=== PATIENT | male | born 1970 | race African-American/Black ===

== ENCOUNTER 2019-04-11 09:48 | Day surgery (SDC) | payer BC ==
[2019-04-10 09:12] VITALS: BMI 42.1
--- NOTE | 2019-04-10 22:17 | HP ---
HISTORY OF PRESENT ILLNESS: This is a 48-year-old male, abdominal pain and diarrhea. The patient has not seen in the last probably in a year and a half. The patient has seen me in the past with abdominal cramping and diarrhea. He had a negative colonoscopy and EGD in 2017. The EGD showed multiple gastric polyps. The patient had abdominal cramping and diarrhea off and on. ALLERGIES: NONE. MEDICAL ILLNESSES: 1. Hypothyroidism. 2. Diabetes mellitus. 3. Migraine. SOCIAL HISTORY: The patient does not smoke. PHYSICAL EXAMINATION: VITAL SIGNS: Pulse is 70 and blood pressure 130/80. HEENT: Conjunctivae clear. CARDIOVASCULAR SYSTEM: First and second heart sounds heard. LUNGS: Clear to auscultation. ABDOMEN: Soft. No organomegaly. No tenderness. No masses. Bowel sounds normal. ADMITTING DIAGNOSIS: Abdominal cramping and diarrhea. PLAN: Colonoscopy. Job ID: [id number]
[2019-04-11] MEDS ORDERED: PROPOFOL 200 MG/20 ML VIAL ONE (12:34)
--- NOTE | 2019-04-11 12:49 | OP ---
DATE OF PROCEDURE: 04/11/2019 OPERATIVE PROCEDURE: Colonoscopy. PREOPERATIVE DIAGNOSIS: A 48-year-old male, undergoing colonoscopy for colon cancer screening. POSTOPERATIVE DIAGNOSES: 1. Diffuse colonic diverticular disease from sigmoid all the way to cecum. 2. Hemorrhoids. 3. Return of stool intermittently in the colon. DESCRIPTION OF PROCEDURE: The patient was placed on his left lateral position and was given sedation by Anesthesia Department. The rectal exam was done before the scope was advanced into the rectum. No lesions felt on rectal exam. A Pentax videocolonoscope was introduced into the rectum and advanced all the way into the cecum. The prep was good on the left side, but once the splenic flexure was reached, he had the fecal coating of the mucosa throughout. He also had some areas with some solid stool. Water was irrigated externally and washed out. The patient had severe sigmoid diverticula. He also has mild diverticula scattered throughout the colon. The appendiceal orifice, ileocecal wall, no pathology seen. Withdrawal of scope from the cecum, ascending colon, hepatic flexure, transverse colon, splenic flexure, descending colon, and sigmoid colon showed scattered diverticula. The rectum showed hemorrhoids. DISCHARGE PLAN: A 48-year-old male came for colonoscopy for colon cancer screening. The patient was found to have diffuse colonic diverticula. The diverticula were seen over the sigmoid colon area. The patient did well postprocedure and is being discharged home. DISCHARGE RECOMMENDATION: 1. The patient is advised to call me if he develops any abdominal pain, hematochezia, or fever. 2. High-fiber diet. 3. Metamucil once a day. 4. To come back to clinic in 2 weeks. Job ID: [id number]
== END 2019-04-11 12:24 | disposition home or self-care (01) ==
LOC: SDC 09:48
PROVIDERS: ATTEND Internal Medicine Gastroenterology
PROC: 0DJD8ZZ Inspection of Lower Intestinal Tract, Via Natural or Artificial Opening Endoscopic (ICD-10-PCS; principal; 2019-04-11)
DX: Z12.11 Encounter for screening for malignant neoplasm of colon (principal); K57.30 Diverticulosis of large intestine without perforation or abscess without bleeding; K64.9 Unspecified hemorrhoids; E03.9 Hypothyroidism, unspecified; E11.9 Type 2 diabetes mellitus without complications; G43.909 Migraine, unspecified, not intractable, without status migrainosus; Z79.4 Long term (current) use of insulin; Z79.82 Long term (current) use of aspirin; Z79.899 Other long term (current) drug therapy; Z91.018 Allergy to other foods; Z91.041 Radiographic dye allergy status; Z98.890 Other specified postprocedural states
CPT/HCPCS: 36416; J2704

== ENCOUNTER 2019-11-25 19:24 | Emergency (ER) | payer BC ==
[2019-11-25 19:53] LABS: #Basophils 0.1 thou/uL (0.0-0.2); #Lymphocytes 1.2 thou/uL (1.20-3.40); #Monocytes 0.4 thou/uL (0.11-0.59); #Neutrophils 3.2 thou/uL (1.40-6.50); %Basophils 1.1 % (0.0-1.0); %Eosinophils 0.7 % (0.0-10.0); %Lymphocytes 24.2 % (21.0-51.0); %Monocytes 8.3 % (0.0-10.0); %Neutrophils 65.7 % (42.0-75.0); Hemoglobin 14.8 g/dL (14.0-18.0); Mean Corpuscular HGB CONC 35.3 g/dL (32.0-36.0); Mean Corpuscular Volume 87.6 fL (78.0-98.0); Mean Platelet Volume 8.1 fL (7.4-10.4); Platelet Count 201 thou/uL (130-400); Red Blood Cell (RBC) Count 4.78 mill/uL (4.70-6.10); White Blood Cell (WBC) Count 4.9 thou/uL (4.8-10.8)
[2019-11-25 20:15] LABS: ALT (SGPT) 47 U/L (8-55); AST (SGOT) 42 U/L (5-34); Albumin 3.8 g/dL (3.5-5.0); Alkaline Phosphatase 90 U/L (40-110); Anion Gap 18 mmol/L (10-20); BUN (Urea Nitrogen) 14 mg/dL (8.4-25.7); Bilirubin, Total 0.6 mg/dL (0.2-1.2); Calc. Creatinine Clearance 0 mL/min (70-130); Calcium 9.2 mg/dL (7.8-10.44); Carbon Dioxide 22 mmol/L (22-29); Chloride 98 mmol/L (98-107); Estimated GFR-MDRD 72; Globulin 4.7 g/dL (2.4-3.5); Glucose 257 mg/dL (70-105); Lipase 115 U/L (8-78); Potassium 3.8 mmol/L (3.5-5.1); Protein, Total 8.5 g/dL (6.0-8.3); Sodium 134 mmol/L (136-145)
[2019-11-25] MEDS ORDERED: Lidocaine Viscous Sol 2% 15 ml UD Cup ONE (20:29)
[2019-11-25] MEDS ORDERED: Mag-Al 1200 mg/1200 mg/30 ML UDCUP ONE (20:29)
[2019-11-25 20:46] LABS: CKMB 2.1 ng/mL (0-6.6)
== END 2019-11-25 20:49 | disposition home or self-care (01) ==
LOC: ERS 19:24
DX: K29.20 Alcoholic gastritis without bleeding (principal); K85.20 Alcohol induced acute pancreatitis without necrosis or infection; M10.9 Gout, unspecified; Z86.711 Personal history of pulmonary embolism; E11.9 Type 2 diabetes mellitus without complications; I10 Essential (primary) hypertension; Z79.82 Long term (current) use of aspirin; Z79.899 Other long term (current) drug therapy; Z79.84 Long term (current) use of oral hypoglycemic drugs
CPT/HCPCS: 36415; 80053; 82553; 83690; 84484; 85025; 93005

== ENCOUNTER 2020-09-29 18:48 | Emergency (ER) | payer BC, SELFPAY ==
--- NOTE | 2020-09-29 19:32 | RAD ---
Chest one view HISTORY: Dyspnea. COMPARISON: 05/04/2016. FINDINGS: Cardiac silhouette and pulmonary vasculature are unremarkable. Mediastinum is midline. No lobar consolidation or evidence of pneumothorax. IMPRESSION : No abnormalities are demonstrated.
[2020-09-29 19:34] LABS: #Basophils 0.1 thou/uL (0.0-0.2); #Eosinphils 0.1 thou/uL (0.0-0.7); #Lymphocytes 1.3 thou/uL (1.20-3.40); #Monocytes 0.3 thou/uL (0.11-0.59); #Neutrophils 1.9 thou/uL (1.40-6.50); %Basophils 1.5 % (0.0-1.0); %Eosinophils 1.6 % (0.0-10.0); %Monocytes 7.1 % (0.0-10.0); %Neutrophils 52.9 % (42.0-75.0); Hemoglobin 13.9 g/dL (14.0-18.0); Mean Corpuscular HGB CONC 34.9 g/dL (32.0-36.0); Mean Corpuscular Hemoglobin 31.2 pg (27.0-31.0); Mean Corpuscular Volume 89.6 fL (78.0-98.0); Mean Platelet Volume 8.1 fL (7.4-10.4); Platelet Count 170 thou/uL (130-400); RBC Distribution Width 12.3 % (11.5-14.5); Red Blood Cell (RBC) Count 4.46 mill/uL (4.70-6.10); White Blood Cell (WBC) Count 3.6 thou/uL (4.8-10.8)
[2020-09-29 19:55] LABS: ALT (SGPT) 46 U/L (8-55); AST (SGOT) 51 U/L (5-34); Albumin 3.7 g/dL (3.5-5.0); Alkaline Phosphatase 72 U/L (40-110); Anion Gap 17 mmol/L (10-20); BUN (Urea Nitrogen) 15 mg/dL (8.4-25.7); Bilirubin, Total 0.8 mg/dL (0.2-1.2); Calc. Creatinine Clearance 0 mL/min (70-130); Calcium 8.3 mg/dL (7.8-10.44); Carbon Dioxide 24 mmol/L (22-29); Chloride 102 mmol/L (98-107); Globulin 4.2 g/dL (2.4-3.5); Glucose 212 mg/dL (70-105); Potassium 3.6 mmol/L (3.5-5.1); Protein, Total 7.9 g/dL (6.0-8.3); Sodium 139 mmol/L (136-145)
[2020-09-29 19:58] LABS: Troponin I 0.024 ng/mL (< 0.028)
[2020-09-30 02:11] LABS: SARS-CoV-2 MS2 Positive; SARS-CoV-2 N Gene Negative; SARS-CoV-2 S Gene Negative; SARS-CoV-2 by NAA Not Detected (NotDetected); SARS-CoV-2 orf1ab Negative
--- NOTE | 2020-10-05 10:49 | EKG ---
Test Reason : SOB Blood Pressure : / mmHG Vent. Rate : 097 BPM Atrial Rate : 097 BPM P-R Int : 178 ms QRS Dur : 074 ms QT Int : 352 ms P-R-T Axes : 057 070 025 degrees QTc Int : 447 ms Normal sinus rhythm Normal ECG Confirmed by LUCILLE THOMAS, ABIGAIL Mckee ([id number]), associate entertainment editor CLARITA CHARLES ([id number]) on 10/05/2020 10:49:00 AM Referred By: Confirmed By:ABIGAIL ADKINS MD
== END 2020-09-29 21:56 | disposition home or self-care (01) ==
LOC: ERS 18:48
DX: R06.02 Shortness of breath (principal); R53.81 Other malaise; Z20.828 Contact with and (suspected) exposure to other viral communicable diseases; M10.9 Gout, unspecified; E11.9 Type 2 diabetes mellitus without complications; I10 Essential (primary) hypertension; Z79.82 Long term (current) use of aspirin; Z79.899 Other long term (current) drug therapy
CPT/HCPCS: 71045; 80053; 83880; 84484; 85025; 87635; 93005; 94760; U0003

== ENCOUNTER 2020-10-11 19:01 | Inpatient (IN) | payer SELFPAY ==
[2020-10-11 19:28] LABS: #Lymphocytes 2.2 thou/uL (1.20-3.40); #Monocytes 0.3 thou/uL (0.11-0.59); #Neutrophils 3.2 thou/uL (1.40-6.50); %Basophils 0.4 % (0.0-1.0); %Eosinophils 0.6 % (0.0-10.0); %Lymphocytes 37.4 % (21.0-51.0); %Monocytes 5.9 % (0.0-10.0); %Neutrophils 55.7 % (42.0-75.0); Mean Corpuscular HGB CONC 35.7 g/dL (32.0-36.0); Mean Corpuscular Hemoglobin 31.5 pg (27.0-31.0); Mean Corpuscular Volume 88.3 fL (78.0-98.0); Mean Platelet Volume 8.4 fL (7.4-10.4); Platelet Count 187 thou/uL (130-400); RBC Distribution Width 12.1 % (11.5-14.5); Red Blood Cell (RBC) Count 4.45 mill/uL (4.70-6.10); White Blood Cell (WBC) Count 5.8 thou/uL (4.8-10.8)
--- NOTE | 2020-10-11 19:35 | RAD ---
RADIOGRAPH CHEST 1 VIEW: DATE: 10/11/2020 HISTORY: 49-year-old male with vomiting FINDINGS: There are no airspace densities, pulmonary edema, pneumothorax, or cardiomegaly. The lateral costophr enic angles are sharp. No evidence of pneumoperitoneum. IMPRESSION: No acute cardiopulmonary findings.
[2020-10-11 19:51] LABS: ALT (SGPT) 43 U/L (8-55); AST (SGOT) 38 U/L (5-34); Albumin 3.3 g/dL (3.5-5.0); Alkaline Phosphatase 79 U/L (40-110); Anion Gap 20 mmol/L (10-20); BUN (Urea Nitrogen) 24 mg/dL (8.4-25.7); Bilirubin, Total 0.5 mg/dL (0.2-1.2); Calc. Creatinine Clearance 0 mL/min (70-130); Calcium 7.7 mg/dL (7.8-10.44); Carbon Dioxide 20 mmol/L (22-29); Chloride 95 mmol/L (98-107); Globulin 5.4 g/dL (2.4-3.5); Glucose 173 mg/dL (70-105); Potassium 4.2 mmol/L (3.5-5.1); Protein, Total 8.7 g/dL (6.0-8.3); Sodium 131 mmol/L (136-145)
--- NOTE | 2020-10-11 20:22 | CT ---
CT BRAIN NONCONTRAST: DATE: 10/11/2020 HISTORY: 49-year-old male with altered mental status and dysarthria FINDINGS: There is no evidence of acute intra-axial or extra-axial hemorrhage. There is no midline shift or any other mass effect. There is no extra-axial fluid collection. There is no evidence of obstructive hydrocephalus. Calvarium is intact. IMPRESSION: No acute intracranial findings.
[2020-10-11] MEDS ORDERED: Dextrose 50% Abboject 50 ML SYRINGE SLOW IVP PRN (21:53)
[2020-10-11] MEDS ORDERED: Dextrose 5% in Water 1,000 ML IV PRN (21:53)
--- NOTE | 2020-10-11 22:12 | PDOC.HHP ---
Hospitalist HPI - History of Present Illness Dysarthria History of Present Illness: This is a 49-year-old male patient with a history of diverticular disease diabetes mellitus, hypertension and gout who presented to the ED today on account of brief episodes of alteration in mental status and balance issues as well dysarthria. Patient notes that on he had been drinking a lot. Awaken up on he was generally not feeling very well with some nausea. Later in the day started feeling unsteady on his feet with some alteration in mental status. Subsequently noted this HPI. He however denied any diplopia, facial droop or dysphagia. He checked his blood sugar at home and noted it to be low in the 80s with slight improvement after eating. He notes that he was tachycardic with heart rate in the 110s. He had nausea but no vomiting He prompted his son who came to the take him to the ED for further evaluation. At the time of evaluation he was in the room with his . On arrival his blood pressure was 173/93, pulse 105, saturation 99% on room air. He was afebrile temperature 97.7. CBC was essentially within normal limits, CMP was concerning for mild hyponatremia of 131, bicarb of 20, creatinine of 1.98 from a baseline of 1.43 2 weeks ago. He received 2 L of IV fluids at presentation he feels generally better. At the time of my evaluation patient slurred speech had disappeared and he had no focal deficits Hospitalist ROS - Review of Systems Constitutional: reports: weakness, malaise. denies: fever, chills, sweats Respiratory: denies: cough, dry, shortness of breath, hemoptysis, SOB with excertion Cardiovascular: denies: chest pain, palpitations, orthopnea, paroxysmal noc. dyspnea Gastrointestinal: reports: nausea. denies: vomiting, abdominal pain, diarrhea Genitourinary: denies: dysuria, frequency, incontinence Neurological: reports: change in speech, confusion. denies: weakness, numbness, incoordination, seizures All other systems reviewed; all pertinent +/- noted in HPI/Subj - Medication Medications: Medications: Can refer to ambulatory order list. Allergies: Contrast Hospitalist History - Past Medical History Other Medical History: Diabetes mellitus, hypertension, gout - Past Surgical History Past Surgical History: reports: Appendectomy Other Surgical History: Rotator cuff surgery on right - Family History Family History: reports: diabetes mellitus - Social History Smoking Status: Former smoker Alcohol: reports: Occassional Drugs: reports: none Activity level: independent ambulation - Exam General Appearance: awake alert General - other findings: In obvious distress Eye: PERRL, anicteric sclera ENT: normocephalic atraumatic, no oropharyngeal lesions, moist mucosa Neck: supple, symmetric, no JVD, no thyromegaly Heart: RRR, no murmur, no gallops, no rubs Respiratory: CTAB, no wheezes, no rales, no ronchi Gastrointestinal: soft, non-tender, non-distended, normal bowel sounds Extremities: no cyanosis, no clubbing Extremities - other findings: Trace pedal edema Skin: normal turgor, no lesions, no rashes Neurological: cranial nerve grossly intact, normal sensation to touch, no focal deficits Musculoskeletal: normal tone, normal strength, no muscle wasting Psychiatric: normal affect, normal behavior, A&O x 3 Hospitalist Results - Labs Result Diagrams: 10/11/20 19:13 10/11/20 19:13 Lab results: WBC 5.8 thou/uL (4.8-10.8) 10/11/20 19:13 Hgb 14.0 g/dL (14.0-18.0) 10/11/20 19:13 Hct 39.3 % (42.0-52.0) L 10/11/20 19:13 MCV 88.3 fL (78.0-98.0) 10/11/20 19:13 Plt Count 187 thou/uL (130-400) 10/11/20 19:13 Neutrophils % 55.7 % (42.0-75.0) 10/11/20 19:13 Sodium 131 mmol/L (136-145) L 10/11/20 19:13 Potassium 4.2 mmol/L (3.5-5.1) 10/11/20 19:13 Chloride 95 mmol/L (98-107) L 10/11/20 19:13 Carbon Dioxide 20 mmol/L (22-29) L 10/11/20 19:13 BUN 24 mg/dL (8.4-25.7) 10/11/20 19:13 Creatinine 1.98 mg/dL (0.7-1.3) H 10/11/20 19:13 Glucose 173 mg/dL (70-105) H 10/11/20 19:13 Calcium 7.7 mg/dL (7.8-10.44) L 10/11/20 19:13 Total Bilirubin 0.5 mg/dL (0.2-1.2) 10/11/20 19:13 AST 38 U/L (5-34) H 10/11/20 19:13 ALT 43 U/L (8-55) 10/11/20 19:13 Alkaline Phosphatase 79 U/L (40-110) 10/11/20 19:13 Troponin I 0.023 ng/mL (< 0.028) 10/11/20 19:13 Serum Total Protein 8.7 g/dL (6.0-8.3) H 10/11/20 19:13 Albumin 3.3 g/dL (3.5-5.0) L 10/11/20 19:13 Hospitalist H&P A/P - Plan Plan: 49-year-old male patient history of diabetes mellitus presented on account of slight altered mental status change and dysarthria. Stroke/TIA Risk factors include diabetes and hypertension CT of his head was negative We will do MRI in a.m. Aspirin and statin PT evaluation Telemetry monitoring and Echocardiogram in a.m. Carotid ultrasound Neuro consult ERICA Unclear etiology possibly prerenal Received 2 L normal saline Repeat BMP in a.m. Diabetes mellitus Check A1c in a.m. Correctional dose insulin. Monitor glucose Alcohol abuse Advised to quit Monitor, consider withdrawal protocol. VT prophylaxisLovenox CODE STATUSfull code
[2020-10-11] MEDS: Sodium Chloride 0.9% 1,000 ML IV SCH (23:49)
[2020-10-12 03:04] VITALS: BMI 40.1
[2020-10-12] MEDS: traZODone HCl 50 MG TAB PO PRN (03:27)
[2020-10-12] MEDS: Acetaminophen 325 MG TAB PO PRN (03:27)
[2020-10-12 05:16] LABS: #Lymphocytes 1.3 thou/uL (1.20-3.40); #Monocytes 0.3 thou/uL (0.11-0.59); #Neutrophils 1.8 thou/uL (1.40-6.50); %Basophils 1.1 % (0.0-1.0); %Eosinophils 1.2 % (0.0-10.0); %Lymphocytes 36.8 % (21.0-51.0); %Monocytes 8.8 % (0.0-10.0); %Neutrophils 52.1 % (42.0-75.0); Hemoglobin 12.2 g/dL (14.0-18.0); Mean Corpuscular HGB CONC 36.4 g/dL (32.0-36.0); Mean Corpuscular Hemoglobin 32.2 pg (27.0-31.0); Mean Corpuscular Volume 88.7 fL (78.0-98.0); Mean Platelet Volume 8.5 fL (7.4-10.4); Platelet Count 155 thou/uL (130-400); Red Blood Cell (RBC) Count 3.78 mill/uL (4.70-6.10); White Blood Cell (WBC) Count 3.5 thou/uL (4.8-10.8)
[2020-10-12 05:17] LABS: Hemoglobin A1c 8.2 % (4.0-6.0)
[2020-10-12 05:45] LABS: Triglycerides 2209 mg/dL (Less than 150)
[2020-10-12 05:56] LABS: Anion Gap 22 mmol/L (10-20); BUN (Urea Nitrogen) 26 mg/dL (8.4-25.7); Calc. Creatinine Clearance 98 mL/min (70-130); Calcium 7.2 mg/dL (7.8-10.44); Carbon Dioxide 16 mmol/L (22-29); Cardiac Risk 26.6 (Less than 4.5); Chloride 99 mmol/L (98-107); Cholesterol 293 mg/dl (< 200 Desired); Glucose 159 mg/dL (70-105); HDL Cholesterol 11 mg/dL (>60 Neg Risk); Potassium 4.1 mmol/L (3.5-5.1); Sodium 133 mmol/L (136-145)
[2020-10-12] MEDS: Sodium Chloride 0.9% 1,000 ML IV SCH ×2 (05:57→20:21)
[2020-10-12] MEDS: HumaLOG 300 UNITS/3 ML VIAL SC PRN ×4 (05:58→20:49)
[2020-10-12] MEDS ORDERED: Allopurinol 300 MG TAB PO PRN (07:28)
[2020-10-12] MEDS ORDERED: Cyclobenzaprine 10 MG TAB PO PRN (07:28)
[2020-10-12] MEDS ORDERED: Non-Formulary Item 1 EACH (Albuterol Sulfate 200 PUFF Inh) INH PRN (07:28)
[2020-10-12] MEDS ORDERED: PROVENTIL INHALER 6.7 G (200 INHALATIONS) INH PRN (07:44)
[2020-10-12] MEDS ORDERED: Non-Formulary Item 1 EACH (Insulin Glargine,Hum.Rec.Anlog [Toujeo Solostar] 300 UNIT/ML M SQ SCH (09:00)
[2020-10-12] MEDS ORDERED: Non-Formulary Item 1 EACH (Lansoprazole [Lansoprazole] 30 MG Capsule.Dr) PO SCH (09:00)
--- NOTE | 2020-10-12 09:02 | ULT ---
BILATERAL CAROTID DUPLEX ULTRASOUND: HISTORY: Stroke TECHNIQUE: Grayscale, color-flow and spectral Doppler ultrasound imaging of the extracranial carotid artery syst ems and vertebral arteries was performed bilaterally. FINDINGS: There is mild intimal thickening involving the common carotid arteries. The peak systolic velocity in the right ICA measures 53.2 cm/s. The peak systolic velocity in the ri ght CCA measures 117.2 cm/s. The peak systolic velocity in the left ICA measures 54.9 cm/s. The peak systolic velocity in the l eft CCA measures 160.1 cm/s. The right IC/CC ratio is0.45. The left IC/CC ratio is 0.34. Vertebral flow: antegrade, bilaterally. Incidental note is made of enlarged lymph nodes within the right neck. When the largest measures 1.9 cm. This is adjacent to the right internal jugular vein. IMPRESSION: No hemodynamically significant stenosis of Both ICAs. Incidental note of enlarged lymph n odes within the right aspect of the neck. A nonemergent follow-up CT of the soft tissues of the neck with IV contrast is recommended for additional characterization.
[2020-10-12] MEDS: Aspirin 81 mg Enteric Coated Tablet PO SCH (09:05)
[2020-10-12] MEDS: NIFEdipine XL 60 MG TAB PO SCH (09:05)
[2020-10-12] MEDS: Enoxaparin Sodium 40 MG/0.4 ML SYRINGE SC SCH (09:05)
[2020-10-12] MEDS: Fenofibrate 48 MG TAB PO SCH (09:05)
[2020-10-12] MEDS: Insulin Glargine 35 UNITS in Pre-Filled Syringe 1 EACH SC SCH (09:08)
--- NOTE | 2020-10-12 11:36 | MRI ---
Exam: Brain MRI without contrast HISTORY: Evaluate for stroke. Altered speech yesterday. COMPARISON: None FINDINGS: Calvarial marrow signal intensity: Appropriate T1 signal Gradient echo sequence: No hemorrhage Brain parenchyma: No mass, mass effect or midline shift. Brain volume, age-appropriate. Cortical flowers-white matter differentiation: Preserved Restricted diffusion: Central arterial flow voids are maintained. Absent restricted diffusion White matter signal intensities:No significant T2 or FLAIR white matter hyperintensities Sinuses: Adequate aeration of the paranasal sinuses and mastoid air cells. IMPRESSION: 1. Absent restricted diffusion. No acute infarct.
--- NOTE | 2020-10-12 14:16 | PDOC.HOSPP ---
- Subjective Encounter Date: 10/12/20 Encounter Time: 12:15 Subjective: no weakness or chest pain or sob feels better says he drinks a lot of beer - Objective Vital Signs & Weight: Vital Signs (12 hours) Temp Pulse Resp BP BP Pulse Ox 10/12/20 11:36 98.3 F 90 18 179/92 H 98 10/12/20 07:18 98.6 F 82 18 172/83 H 98 10/12/20 03:00 99.7 F H 88 18 146/78 H 98 Weight Weight 296 lb I&O: 10/11/20 10/12/20 10/13/20 06:59 06:59 06:59 Intake Total 480 Balance 480 Result Diagrams: 10/12/20 04:50 10/12/20 04:50 Additional Labs: Accuchecks 10/12/20 10/12/20 11:42 05:01 POC Glucose 182 H 177 H Hospitalist ROS - Medication Medications: Active Medications Generic Name Dose Route Start Last Admin Trade Name Freq PRN Reason Stop Dose Admin Acetaminophen 650 mg 10/12/20 02:27 10/12/20 03:27 Acetaminophen 325 Mg Tab PO 650 mg Q4H PRN Administration Headache/Fever or Pain Aspirin 81 mg 10/12/20 09:00 10/12/20 09:05 Aspirin 81 Mg Enteric Coated Tablet PO 81 mg DAILY NUBIA Administration Enoxaparin Sodium 40 mg 10/12/20 09:00 10/12/20 09:05 Enoxaparin Sodium 40 Mg/0.4 Ml Syringe SC 40 mg 0900 NUBIA Administration Fenofibrate 48 mg 10/12/20 09:00 10/12/20 09:05 Fenofibrate 48 Mg Tab PO 48 mg DAILY NUBIA Administration Sodium Chloride 1,000 mls @ 70 mls/hr 10/11/20 22:15 10/12/20 05:57 Normal Saline 0.9% IV 1,000 mls .[id number] NUBIA Administration Insulin Glargine 35 units/ 0.35 mls @ 0 mls/hr 10/12/20 09:00 10/12/20 09:08 Miscellaneous Medication SC 0.35 mls QAM NUBIA Administration Insulin Human Lispro 0 units 10/11/20 21:53 10/12/20 11:54 Humalog 300 Units/3 Ml Vial SC 2 units .MILD SLIDING SCALE PRN Administration Mild Correctional Scale Metoprolol Succinate 50 mg 10/12/20 09:00 10/12/20 09:05 Metoprolol Succinate Xl 50 Mg Tab PO 50 mg DAILY NUBIA Administration Nifedipine 60 mg 10/12/20 09:00 10/12/20 09:05 Nifedipine Xl 60 Mg Tab PO 60 mg DAILY NUBIA Administration Pantoprazole Sodium 40 mg 10/12/20 09:00 10/12/20 09:05 Pantoprazole 40 Mg Tab PO 40 mg DAILY NUBIA Administration Sodium Chloride 10 ml 10/12/20 09:00 10/12/20 09:08 Flush - Normal Saline 10 Ml Syringe IVF 10 ml Q12HR NUBIA Administration Trazodone HCl 50 mg 10/12/20 02:51 10/12/20 03:27 Trazodone Hcl 50 Mg Tab PO 50 mg HS PRN Administration Insomnia - Exam General Appearance: awake alert Eye: PERRL, anicteric sclera ENT: no oropharyngeal lesions, moist mucosa Neck: supple, no JVD Heart: RRR, no murmur Respiratory: no wheezes, no rales Gastrointestinal: soft, non-tender, non-distended, normal bowel sounds Extremities: no cyanosis, no edema Neurological: cranial nerve grossly intact, no focal deficits Psychiatric: normal affect, A&O x 3 Hosp A/P (1) ERICA (acute kidney injury) Code(s): N17.9 - ACUTE KIDNEY FAILURE, UNSPECIFIED Status: Acute (2) TIA (transient ischemic attack) Code(s): G45.9 - TRANSIENT CEREBRAL ISCHEMIC ATTACK, UNSPECIFIED Status: Resolved (3) Obesity Code(s): E66.9 - OBESITY, UNSPECIFIED Status: Chronic Qualifiers: Obesity classification: adult class 3 (BMI >= 40) Body mass index: BMI 40.0-44.9 (4) Alcohol abuse Code(s): F10.10 - ALCOHOL ABUSE, UNCOMPLICATED Status: Chronic (5) DM type 2 (diabetes mellitus, type 2) Status: Chronic Qualifiers: Diabetes mellitus chcf insulin use: without chcf use Diabetes mellitus complication status: with kidney complications Diabetes mellitus complication detail: with chronic kidney disease (6) Hypertension, uncontrolled Code(s): I10 - ESSENTIAL (PRIMARY) HYPERTENSION Status: Chronic (7) Dyslipidemia Code(s): E78.5 - HYPERLIPIDEMIA, UNSPECIFIED Status: Chronic (8) Hypertriglyceridemia Code(s): E78.1 - PURE HYPERGLYCERIDEMIA Status: Chronic - Plan stroke w/u is -ve for ac cva, TIA has resolved h/o heavy alc abuse, d/w patient and add tricor for severe hypertriglyceridemia likely sec to heavy alc use in addition to diet, previously was in the 500's now around 1999 continue asp, lipitor, toprol xl, lantus, add hydralazine, off lisinopril due to erica continue iv hydration, apparently he had normal creatinine (he will check his mobile deyanira to let us know previous levels when he can charge it) hemo/neurostable may tx to med [facility], [place] neurochecks change status to inpatient, needs iv fluids for erica and to optimize htn meds.
[2020-10-12] MEDS: hydrALAZINE 25 MG TAB PO SCH ×2 (14:37→20:20)
[2020-10-12 16:25] LABS: SARS-CoV-2 MS2 Positive; SARS-CoV-2 N Gene Negative; SARS-CoV-2 S Gene Negative; SARS-CoV-2 by NAA Not Detected (NotDetected); SARS-CoV-2 orf1ab Negative
[2020-10-12] MEDS: Atorvastatin Calcium 40 MG TAB PO SCH (20:21)
[2020-10-13] MEDS: Acetaminophen 325 MG TAB PO PRN ×2 (03:00→23:39)
[2020-10-13] MEDS: traZODone HCl 50 MG TAB PO PRN (03:01)
[2020-10-13] MEDS: Sodium Chloride 0.9% 1,000 ML IV SCH ×2 (03:13→07:55)
[2020-10-13 05:27] LABS: #Eosinphils 0.1 thou/uL (0.0-0.7); #Monocytes 0.3 thou/uL (0.11-0.59); #Neutrophils 1.4 thou/uL (1.40-6.50); %Basophils 1.7 % (0.0-1.0); %Eosinophils 2.2 % (0.0-10.0); %Monocytes 9.6 % (0.0-10.0); %Neutrophils 51.6 % (42.0-75.0); Hemoglobin 11.8 g/dL (14.0-18.0); Mean Corpuscular HGB CONC 36.9 g/dL (32.0-36.0); Mean Corpuscular Hemoglobin 33.2 pg (27.0-31.0); Mean Platelet Volume 8.6 fL (7.4-10.4); Platelet Count 126 thou/uL (130-400); RBC Distribution Width 12.1 % (11.5-14.5); Red Blood Cell (RBC) Count 3.57 mill/uL (4.70-6.10); White Blood Cell (WBC) Count 2.7 thou/uL (4.8-10.8)
[2020-10-13] MEDS: HumaLOG 300 UNITS/3 ML VIAL SC PRN ×4 (05:33→20:38)
[2020-10-13 05:42] LABS: Anion Gap 22 mmol/L (10-20); BUN (Urea Nitrogen) 13 mg/dL (8.4-25.7); Calc. Creatinine Clearance 127 mL/min (70-130); Carbon Dioxide 14 mmol/L (22-29); Chloride 101 mmol/L (98-107); Glucose 325 mg/dL (70-105); Potassium 3.5 mmol/L (3.5-5.1); Sodium 133 mmol/L (136-145)
[2020-10-13] MEDS: Aspirin 81 mg Enteric Coated Tablet PO SCH (07:51)
[2020-10-13] MEDS: Fenofibrate 48 MG TAB PO SCH (07:51)
[2020-10-13] MEDS: Lisinopril 20 MG TAB PO SCH (07:52)
[2020-10-13] MEDS: hydrALAZINE 25 MG TAB PO SCH ×3 (07:52→20:37)
[2020-10-13] MEDS: NIFEdipine XL 60 MG TAB PO SCH (07:53)
[2020-10-13] MEDS: Enoxaparin Sodium 40 MG/0.4 ML SYRINGE SC SCH (07:53)
[2020-10-13] MEDS: Insulin Glargine 35 UNITS in Pre-Filled Syringe 1 EACH SC SCH (08:53)
[2020-10-13] MEDS ORDERED: chlordiazePOXIDE HCl 25 MG CAP PO PRN (09:27)
[2020-10-13] MEDS ORDERED: Diazepam 5 MG TAB PO PRN (09:28)
[2020-10-13] MEDS ORDERED: Diazepam 5 MG TAB PO SCH (09:30)
[2020-10-13] MEDS ORDERED: Thiamine HCl 200 MG/2 ML VIAL IM SCH (09:30)
--- NOTE | 2020-10-13 12:03 | PDOC.HOSPP ---
- Subjective Encounter Date: 10/13/20 Encounter Time: 10:15 Subjective: no chest pain or sob has exertional tachycardia upto 160/min multiple times in last 24hrs no weakness anywhere, is eating and drinking well no craving for alcohol - Objective Vital Signs & Weight: Vital Signs (12 hours) Temp Pulse Resp BP BP Pulse Ox 10/13/20 11:42 98.4 F 80 16 139/82 98 10/13/20 07:51 97.8 F 100 16 158/81 H 99 10/13/20 07:50 99 10/13/20 03:47 98.2 F 82 20 159/93 H 98 Weight Weight 296 lb I&O: 10/12/20 10/13/20 10/14/20 06:59 06:59 06:59 Intake Total 3310 Balance 3310 Result Diagrams: 10/13/20 04:58 10/13/20 04:58 Additional Labs: Accuchecks 10/13/20 10/13/20 10/12/20 10:39 05:32 16:40 POC Glucose 305 H 299 H 291 H Hospitalist ROS - Medication Medications: Active Medications Generic Name Dose Route Start Last Admin Trade Name Freq PRN Reason Stop Dose Admin Acetaminophen 650 mg 10/12/20 02:27 10/13/20 03:00 Acetaminophen 325 Mg Tab PO 650 mg Q4H PRN Administration Headache/Fever or Pain Aspirin 81 mg 10/12/20 09:00 10/13/20 07:51 Aspirin 81 Mg Enteric Coated Tablet PO 81 mg DAILY NUBIA Administration Atorvastatin Calcium 40 mg 10/12/20 21:00 10/12/20 20:21 Atorvastatin Calcium 40 Mg Tab PO 40 mg HS NUBIA Administration Diazepam 10 mg 10/13/20 09:30 10/13/20 09:33 Diazepam 5 Mg Tab PO 10/13/20 14:00 Not Given NOW NUBIA Enoxaparin Sodium 40 mg 10/12/20 09:00 10/13/20 07:53 Enoxaparin Sodium 40 Mg/0.4 Ml Syringe SC 40 mg 0900 NUBIA Administration Fenofibrate 48 mg 10/12/20 09:00 10/13/20 07:51 Fenofibrate 48 Mg Tab PO 48 mg DAILY NUBIA Administration Hydralazine HCl 25 mg 10/12/20 15:00 10/13/20 07:52 Hydralazine 25 Mg Tab PO 25 mg TID NUBIA Administration Sodium Chloride 1,000 mls @ 70 mls/hr 10/11/20 22:15 10/13/20 07:55 Normal Saline 0.9% IV 1,000 mls .[id number] NUBIA Administration Insulin Glargine 35 units/ 0.35 mls @ 0 mls/hr 10/12/20 09:00 10/13/20 08:53 Miscellaneous Medication SC 0.35 mls QAM NUBIA Administration Magnesium Sulfate 1 gm/ Sodium 102 mls @ 102 mls/hr 10/13/20 09:30 10/13/20 09:34 Chloride IVPB 10/13/20 14:00 Not Given NOW [facility] Insulin Human Lispro 0 units 10/11/20 21:53 10/13/20 11:03 Humalog 300 Units/3 Ml Vial SC 5 units .MILD SLIDING SCALE PRN Administration Mild Correctional Scale Insulin Human Lispro 0 units 10/12/20 20:38 10/12/20 20:49 Humalog 300 Units/3 Ml Vial SC 5 unit .BEDTIME SLIDING SC PRN Administration Bedtime Correctional Scale Lisinopril 20 mg 10/13/20 09:00 10/13/20 07:52 Lisinopril 20 Mg Tab PO 20 mg DAILY NUBIA Administration Nifedipine 60 mg 10/12/20 09:00 10/13/20 07:53 Nifedipine Xl 60 Mg Tab PO 60 mg DAILY NUBIA Administration Pantoprazole Sodium 40 mg 10/12/20 09:00 10/13/20 07:51 Pantoprazole 40 Mg Tab PO 40 mg DAILY NUBIA Administration Sodium Chloride 10 ml 10/12/20 09:00 10/13/20 07:53 Flush - Normal Saline 10 Ml Syringe IVF Not Given Q12HR NUBIA Thiamine HCl 100 mg 10/13/20 09:30 10/13/20 09:33 Thiamine Hcl 200 Mg/2 Ml Vial IM 10/13/20 14:00 Not Given NOW NUBIA Trazodone HCl 50 mg 10/12/20 02:51 10/13/20 03:01 Trazodone Hcl 50 Mg Tab PO 50 mg HS PRN Administration Insomnia - Exam General Appearance: awake alert Eye: PERRL, anicteric sclera ENT: no oropharyngeal lesions, moist mucosa Neck: supple, no JVD Heart: RRR, no murmur Respiratory: no wheezes, no rales, no ronchi Gastrointestinal: soft, non-tender, non-distended, normal bowel sounds Extremities: no cyanosis, no edema Neurological: cranial nerve grossly intact, no focal deficits Psychiatric: normal affect, A&O x 3 Hosp A/P (1) ERICA (acute kidney injury) Code(s): N17.9 - ACUTE KIDNEY FAILURE, UNSPECIFIED Status: Acute (2) TIA (transient ischemic attack) Code(s): G45.9 - TRANSIENT CEREBRAL ISCHEMIC ATTACK, UNSPECIFIED Status: Resolved (3) Obesity Code(s): E66.9 - OBESITY, UNSPECIFIED Status: Chronic Qualifiers: Obesity classification: adult class 3 (BMI >= 40) Body mass index: BMI 40.0-44.9 (4) Alcohol abuse Code(s): F10.10 - ALCOHOL ABUSE, UNCOMPLICATED Status: Chronic (5) DM type 2 (diabetes mellitus, type 2) Status: Chronic Qualifiers: Diabetes mellitus correction insulin use: without correction use Diabetes mellitus complication status: with kidney complications Diabetes mellitus com plication detail: with chronic kidney disease (6) Hypertension, uncontrolled Code(s): I10 - ESSENTIAL (PRIMARY) HYPERTENSION Status: Chronic (7) Dyslipidemia Code(s): E78.5 - HYPERLIPIDEMIA, UNSPECIFIED Status: Chronic (8) Hypertriglyceridemia Code(s): E78.1 - PURE HYPERGLYCERIDEMIA Status: Chronic - Plan stroke w/u is -ve for ac cva, TIA has resolved h/o heavy alc abuse, d/w patient and and have given full updates on 10/12, 10/13. on tricor for severe hypertriglyceridemia likely sec to heavy alc use in addition to diet, previously was in the 500's now around 2000 continue asp, lipitor, glyburide, metformin, pioglitazone, lantus, hydralazine, lisinopril. Increase toprol xl to 100mg daily from today renal function is slowly trending back to baseline hemo/neurostable dc neurochecks Has sinus tacycardia with minimal exertion (amb in room), cardio consultation, toprol was increased to 100mg daily from today
--- NOTE | 2020-10-13 13:06 | CON ---
DATE OF CONSULTATION: REASON FOR CONSULTATION: Tachycardia. HISTORY OF PRESENT ILLNESS: Mr. Jaeger is a 49-year-old gentleman, who was seen and evaluated by Dr. Dov Weiss greater than 5 years ago. He underwent coronary angiography. He has a previous history of pulmonary embolus diagnosed in 2008. He recently presented with slurred speech. It was concerning for a TIA. This is completely resolved. His MRI was negative. He has had increased heart rate noted with a little ambulation. He states he has been on metoprolol 100 mg 1 p.o. q.a.m. in the past, was decreased to 50 mg and has been discontinued. He denies chest pain, pressure, or other associated symptoms. After reviewing his records, it also appears he has had after reviewing the chart, could not ascertain the reason for these levels. PAST MEDICAL HISTORY: Alcoholic pancreatitis, pulmonary embolus, diabetes mellitus, hypertension, gout. SOCIAL HISTORY: Previous tobacco use. Occasional alcohol use. No drug use. He is currently unemployed. PAST SURGICAL HISTORY: Appendectomy. REVIEW OF SYSTEMS: Ten-point review of systems is reviewed and is as above, otherwise negative. HOME MEDICATIONS: Include: 1. Glyburide/metformin. 2. Toprol. 3. ProAir. 4. Aspirin. 5. Lansoprazole. 6. Tylenol with Codeine. 7. Flexeril. 8. Desyrel. 9. Zestril. 10. Actos. 11. Procardia. PHYSICAL EXAMINATION: GENERAL: Patient is a pleasant 49-year-old gentleman, who is in no acute distress. The patient appears their stated age. VITAL SIGNS: Blood pressure 139/82, pulse 80, temperature 98.4. NEUROLOGIC: The patient is alert and oriented x3 with no focal neurologic deficits. HEENT: Sclerae without icterus. Mouth has moist mucous membranes with normal pallor. NECK: No JVD. Carotid upstroke brisk. No bruits bilaterally. LUNGS: Clear to auscultation with unlabored respirations. BACK: No scoliosis or kyphosis. CARDIAC: Regular rate and rhythm with normal S1 and S2. No S3 or S4 noted. No significant rubs, murmurs, thrills, or gallops noted throughout the precordium. PMI is not displaced. There is no parasternal heave. ABDOMEN: Soft, nontender, nondistended. No peritoneal signs present. No hepatosplenomegaly. No abnormal striae. EXTREMITIES: 2+ femoral and 2+ dorsalis pedis pulses. No cyanosis, clubbing, or edema. SKIN: No gross abnormalities. PERTINENT LABORATORY DATA: Hemoglobin 11.2, hematocrit 32.1. D-dimer pending. TSH pending. Hemoglobin 11.8. Echo pending. COVID negative. IMPRESSION: 1. Tachycardia. 2. Transient ischemic attack. 3. Hypertension. 4. Previous pulmonary embolism. RECOMMENDATIONS: His rhythm appears to be currently stable. He has had sinus tachycardia that resolved. We would seek a secondary cause. We will check a TSH and D-dimer. If D-dimer is positive, we would recommend a CT of the chest to assess for PE. This could be the atypical presentation of PE given his previous history of PE, although appears to be in the face of alcoholic pancreatitis in 2008. This may also be secondary to reflex tachycardia from Procardia. We would recommend stopping Procardia in place of Toprol, which has been done. We would also assess his LVEF on echo, which is currently pending. Job ID: [id number]
[2020-10-13] MEDS: glyBURIDE 2.5 MG TAB PO SCH (16:04)
[2020-10-13] MEDS: metFORMIN 500 MG TAB PO SCH (16:04)
[2020-10-13] MEDS ORDERED: METFORMIN HCL PO SCH (17:00)
[2020-10-13] MEDS ORDERED: GLYBURIDE PO SCH (17:00)
[2020-10-13] MEDS ORDERED: [UNRECOGNIZED DRUG - OTHER] PO SCH (17:00)
[2020-10-13] MEDS ORDERED: Enoxaparin Sodium 80 MG/0.8 ML SYRINGE SC SCH (17:30)
[2020-10-13] MEDS: predniSONE 20 MG TAB PO SCH ×2 (17:35→23:35)
[2020-10-13] MEDS: diphenhydrAMINE 25 MG CAP PO SCH ×2 (17:36→23:35)
[2020-10-13] MEDS: Atorvastatin Calcium 40 MG TAB PO SCH (20:37)
[2020-10-14] MEDS ORDERED: Diazepam 5 MG TAB PO PRN (04:00)
[2020-10-14 05:12] LABS: #Lymphocytes 0.6 thou/uL (1.20-3.40); #Monocytes 0.1 thou/uL (0.11-0.59); #Neutrophils 3.5 thou/uL (1.40-6.50); %Eosinophils 0.3 % (0.0-10.0); %Lymphocytes 14.4 % (21.0-51.0); %Monocytes 1.4 % (0.0-10.0); %Neutrophils 83.9 % (42.0-75.0); Mean Corpuscular HGB CONC 34.6 g/dL (32.0-36.0); Mean Corpuscular Hemoglobin 31.4 pg (27.0-31.0); Mean Corpuscular Volume 90.5 fL (78.0-98.0); Mean Platelet Volume 8.6 fL (7.4-10.4); Platelet Count 143 thou/uL (130-400); RBC Distribution Width 12.2 % (11.5-14.5); Red Blood Cell (RBC) Count 4.13 mill/uL (4.70-6.10); White Blood Cell (WBC) Count 4.2 thou/uL (4.8-10.8)
[2020-10-14] MEDS: HumaLOG 300 UNITS/3 ML VIAL SC PRN ×4 (06:10→21:41)
[2020-10-14] MEDS: predniSONE 20 MG TAB PO SCH (06:10)
[2020-10-14] MEDS: diphenhydrAMINE 25 MG CAP PO SCH (06:10)
[2020-10-14] MEDS: Pioglitazone HCl 15 MG TAB PO SCH (08:06)
[2020-10-14] MEDS: glyBURIDE 2.5 MG TAB PO SCH ×2 (08:06→17:06)
[2020-10-14] MEDS: Aspirin 81 mg Enteric Coated Tablet PO SCH (08:06)
[2020-10-14] MEDS: Magnesium Oxide 400 MG TAB PO SCH (08:06)
[2020-10-14] MEDS: metFORMIN 500 MG TAB PO SCH ×2 (08:06→17:06)
[2020-10-14] MEDS: Folic Acid 1 MG TAB PO SCH (08:07)
[2020-10-14] MEDS: NIFEdipine XL 60 MG TAB PO SCH (08:07)
[2020-10-14] MEDS: hydrALAZINE 25 MG TAB PO SCH ×3 (08:07→21:40)
[2020-10-14] MEDS: Thiamine 100 MG TAB PO SCH (08:07)
[2020-10-14] MEDS: Multivitamin W/ Minerals 1 TAB PO SCH (08:08)
[2020-10-14] MEDS: Fenofibrate 48 MG TAB PO SCH (08:08)
[2020-10-14] MEDS: Lisinopril 20 MG TAB PO SCH (08:08)
[2020-10-14] MEDS ORDERED: Enoxaparin Sodium 40 MG/0.4 ML SYRINGE SC SCH (09:00)
[2020-10-14] MEDS ORDERED: PIOGLITAZONE HCL 30 MG PO SCH (09:00)
[2020-10-14] MEDS ORDERED: Iopamidol 370 76% 100 ML VIAL ONE (09:25)
[2020-10-14] MEDS: Insulin Glargine 35 UNITS in Pre-Filled Syringe 1 EACH SC SCH (10:17)
--- NOTE | 2020-10-14 10:31 | CT ---
CT ANGIOGRAM THORAX WITH CONTRAST: (CTA pulmonary angiogram) DATE: 10/14/2020 HISTORY: 49-year-old male with tachycardia Dr. Benavides reported the findings by telephone to Dr. Koch at 10:28 AM 10/14/2020 TECHNIQUE: IV injection of iodinated contrast. Scan acquisition timing attempted to coincide with iodinated contrast bolus reaching maximal density in pulmonary arteries. 3-D MIP reconstructions. FINDINGS: There is moderate degree of mediastinal lymphadenopathy, with moderately large mediastinal lymph node s in the prevascular, paratracheal, and subcarinal regions, many of them confluent with each other and difficult to separate from each other. These are contiguous with moderately enlarged bilateral hi lar lymph nodes. There is a cluster of small calcifications involving posterior right aspect of subcarinal conglomeration of lymph nodes. There is thin curvilinear filling defect at the right lower lobe pulmonary artery, extending into the posterior segmental branch. No thrombus in pulmonary trunk, left and right main pulmonary arteries, or left branches. No pulmonary edema, consolidation, or groundglass infiltrates. No pleural effusion, pericardial effusion, or pneumothorax. No thoracic aortic dissection or aneurysm.. IMPRESSION: 1) positive for pulmonary thromboembolism consisting of mild clot burden in the right lower lobe pulm onary artery proximal branch. 2) mediastinal and hilar lymphadenopathy. Possibilities include sarcoidosis, lymphoma, and metastatic disease.
[2020-10-14 11:43] LABS: Anion Gap 18 mmol/L (10-20); BUN (Urea Nitrogen) 10 mg/dL (8.4-25.7); Calc. Creatinine Clearance 106 mL/min (70-130); Calcium 8.4 mg/dL (7.8-10.44); Carbon Dioxide 22 mmol/L (22-29); Chloride 97 mmol/L (98-107); Glucose 439 mg/dL (70-105); Potassium 4.3 mmol/L (3.5-5.1); Sodium 133 mmol/L (136-145)
[2020-10-14] MEDS ORDERED: Heparin 10,000 UNITS/ 10 ML VIAL SLOW IVP SCH (12:00)
[2020-10-14] MEDS ORDERED: Heparin 25,000 units/D5W 500 ML IVPB SCH (12:00)
[2020-10-14 12:53] LABS: Hemoglobin 13.7 g/dL (14.0-18.0); Platelet Count 141 thou/uL (130-400)
--- NOTE | 2020-10-14 13:22 | PDOC.HOSPP ---
- Subjective Encounter Date: 10/14/20 Encounter Time: 10:15 Subjective: no sob or chest pain is amb in room without assistance - Objective Vital Signs & Weight: Vital Signs (12 hours) Temp Pulse Resp BP BP BP Pulse Ox 10/14/20 11:22 98.5 F 91 20 145/78 H 98 10/14/20 10:22 98.2 F 83 20 125/82 97 10/14/20 08:03 139/94 H 99 10/14/20 07:15 97.7 F 96 16 139/94 H 99 10/14/20 04:00 98.2 F 93 18 166/88 H 166/88 H 96 Weight Weight 296 lb I&O: 10/13/20 10/14/20 10/15/20 06:59 06:59 06:59 Intake Total 3310 1964 Balance 3310 1964 Result Diagrams: 10/14/20 12:42 10/14/20 10:55 Additional Labs: Accuchecks 10/14/20 10/14/20 10/13/20 10:16 05:53 20:33 POC Glucose 404 H 416 H 386 H 10/13/20 10/12/20 10/11/20 16:50 20:25 19:13 POC Glucose 285 H 342 H 170 H Hospitalist ROS - Medication Medications: Active Medications Generic Name Dose Route Start Last Admin Trade Name Freq PRN Reason Stop Dose Admin Acetaminophen 650 mg 10/12/20 02:27 10/13/20 23:39 Acetaminophen 325 Mg Tab PO 650 mg Q4H PRN Administration Headache/Fever or Pain Aspirin 81 mg 10/12/20 09:00 10/14/20 08:06 Aspirin 81 Mg Enteric Coated Tablet PO 81 mg DAILY NUBIA Administration Atorvastatin Calcium 40 mg 10/12/20 21:00 10/13/20 20:37 Atorvastatin Calcium 40 Mg Tab PO 40 mg HS NUBIA Administration Fenofibrate 48 mg 10/12/20 09:00 10/14/20 08:08 Fenofibrate 48 Mg Tab PO 48 mg DAILY NUBIA Administration Folic Acid 1 mg 10/14/20 09:00 10/14/20 08:07 Folic Acid 1 Mg Tab PO 1 mg DAILY NUBIA Administration Glyburide 2.5 mg 10/13/20 17:00 10/14/20 08:06 Glyburide 2.5 Mg Tab PO 2.5 mg BID-WM NUBIA Administration Hydralazine HCl 25 mg 10/12/20 15:00 10/14/20 08:07 Hydralazine 25 Mg Tab PO 25 mg TID NUBIA Administration Insulin Human Lispro 0 units 10/11/20 21:53 10/14/20 10:46 Humalog 300 Units/3 Ml Vial SC 6 units .MILD SLIDING SCALE PRN Administration Mild Correctional Scale Insulin Human Lispro 0 units 10/12/20 20:38 10/13/20 20:38 Humalog 300 Units/3 Ml Vial SC 5 unit .BEDTIME SLIDING SC PRN Administration Bedtime Correctional Scale Iron/Minerals/Multivitamins 1 tab 10/14/20 09:00 10/14/20 08:08 Multivitamin W/ Minerals 1 Tab PO 1 tab DAILY NUBIA Administration Lisinopril 20 mg 10/13/20 09:00 10/14/20 08:08 Lisinopril 20 Mg Tab PO 20 mg DAILY NUBIA Administration Magnesium Oxide 400 mg 10/14/20 09:00 10/14/20 08:06 Magnesium Oxide 400 Mg Tab PO 400 mg DAILY NUBIA Administration Metformin HCl 500 mg 10/13/20 17:00 10/14/20 08:06 Metformin 500 Mg Tab PO 500 mg BID-WM NUBIA Administration Metoprolol Succinate 100 mg 10/14/20 09:00 10/14/20 08:07 Metoprolol Succinate Xl 100 Mg Tab PO 100 mg DAILY NUBIA Administration Nifedipine 60 mg 10/12/20 09:00 10/14/20 08:07 Nifedipine Xl 60 Mg Tab PO 60 mg DAILY NUBIA Administration Pantoprazole Sodium 40 mg 10/12/20 09:00 10/14/20 08:08 Pantoprazole 40 Mg Tab PO 40 mg DAILY NUBIA Administration Pioglitazone HCl 30 mg 10/14/20 09:00 10/14/20 08:06 Pioglitazone Hcl 15 Mg Tab PO 30 mg DAILY NUBIA Administration Sodium Chloride 10 ml 10/12/20 09:00 10/14/20 08:09 Flush - Normal Saline 10 Ml Syringe IVF 10 ml Q12HR NUBIA Administration Thiamine HCl 100 mg 10/14/20 09:00 10/14/20 08:07 Thiamine 100 Mg Tab PO 100 mg DAILY NUBIA Administration Trazodone HCl 50 mg 10/12/20 02:51 10/13/20 03:01 Trazodone Hcl 50 Mg Tab PO 50 mg HS PRN Administration Insomnia - Exam General Appearance: awake alert Eye: PERRL, anicteric sclera ENT: no oropharyngeal lesions, moist mucosa Neck: supple, no JVD Heart: RRR, no murmur Respiratory: no wheezes, no rales Gastrointestinal: soft, non-tender, non-distended, normal bowel sounds Extremities: no cyanosis, no edema Neurological: cranial nerve grossly intact, no focal deficits Psychiatric: normal affect, A&O x 3 Hosp A/P (1) ERICA (acute kidney injury) Code(s): N17.9 - ACUTE KIDNEY FAILURE, UNSPECIFIED Status: Acute (2) TIA (transient ischemic attack) Code(s): G45.9 - TRANSIENT CEREBRAL ISCHEMIC ATTACK, UNSPECIFIED Status: Resolved (3) Obesity Code(s): E66.9 - OBESITY, UNSPECIFIED Status: Chronic Qualifiers: Obesity classification: adult class 3 (BMI >= 40) Body mass index: BMI 40.0-44.9 (4) Alcohol abuse Code(s): F10.10 - ALCOHOL ABUSE, UNCOMPLICATED Status: Chronic (5) DM type 2 (diabetes mellitus, type 2) Status: Chronic Qualifiers: Diabetes mellitus penitentiary insulin use: without ad terminal makeup operator use Diabetes mellitus complication status: with kidney complications Diabetes mellitus complication detail: with chronic kidney disease (6) Hypertension, uncontrolled Code(s): I10 - ESSENTIAL (PRIMARY) HYPERTENSION Status: Chronic (7) Dyslipidemia Code(s): E78.5 - HYPERLIPIDEMIA, UNSPECIFIED Status: Chronic (8) Hypertriglyceridemia Code(s): E78.1 - PURE HYPERGLYCERIDEMIA Status: Chronic (9) Pulmonary embolus Code(s): I26.99 - OTHER PULMONARY EMBOLISM WITHOUT ACUTE COR PULMONALE Status: Acute Qualifiers: Pulmonary embolism type: unspecified Chronicity: acute Acute cor pulmonale presence: without acute cor pulmonale Qualified Code(s): I26.99 - Other pulmonary embolism without acute cor pulmonale (10) Mediastinal lymphadenopathy Code(s): R59.0 - LOCALIZED ENLARGED LYMPH NODES Status: Chronic - Plan CTA shows PE, has prior h/o PE, start heparin for now, will switch to coumadin after evaluates him for possible med biopsy mediastinal lymphadenopathy, he has had them from 2006 when biopsy was -ve and he saw then with no further f/u, not sure if he will need biopsy again, await CTS opinion. stroke w/u is -ve for ac cva, TIA has resolved h/o heavy alc abuse d/w patient and and have given full updates on 10/12, 10/13, 10/14. on tricor for severe hypertriglyceridemia likely sec to heavy alc use in addition to diet, previously was in the 500's now around 1999 continue asp, lipitor, glyburide, metformin, pioglitazone, lantus, hydralazine, lisinopril. Increase toprol xl to 100mg daily from today renal function is slowly trending back to baseline hemo/neurostable to ambulate as tolerated pt currently has no insurance and will have to go on coumadin for dc planning, likely will f/u at [facility], d/w .
[2020-10-14] MEDS: Sodium Chloride 0.9% 1,000 ML IV SCH (17:06)
[2020-10-14 18:33] LABS: PTT 246.2 sec (22.9-36.1)
--- NOTE | 2020-10-14 18:43 | CON ---
DATE OF CONSULTATION: HISTORY OF PRESENT ILLNESS: This is a pleasant 49-year-old gentleman, admitted with symptoms of altered mental status, balance issues, and dysarthria. He denied any focal symptoms of muscle weakness in his right or left. He had a history of tachycardia and in the remote past had been treated for pulmonary embolus. He was also noted to be dyspneic with minimal exertion, although it should be noted that the patient is morbidly obese as well. He was admitted to the hospital, where he had carotid ultrasonography showing minimal disease. His CT scan of the head was negative. MRI of the brain showed no evidence of stroke. He underwent CTA of the chest and abdomen, which did show a pulmonary embolus and also showed significant mediastinal adenopathy. I have reviewed this scan as well as scan from 2015 and there has been no interval change. The patient states that he was seen by Dr. Garcia and Dr. Lam about 2007 and at that time, they did not think he had lymphoma and did not recommend biopsy PHYSICAL EXAMINATION: GENERAL: He is alert, cooperative gentleman, no distress. LUNGS: Clear to auscultation anteriorly. CARDIAC: Without murmurs. EXTREMITIES: Lower extremities without edema. NEUROLOGIC: Grossly intact. ASSESSMENT AND PLAN: As noted above, the patient has been previously seen by Dr. Garcia and Dr. Lam about 2007 and at that time, he was not felt to have lymphoma. I suspect he does have sarcoid, but unless his symptoms suggest prednisone therapy is needed, I would not think that biopsy would alter treatment at this time. I have discussed this with the patient and and at this time, we will just assume benign mediastinal adenopathy which si stable without over the past 5 years, documented by CT scan. Job ID: [id number] [facility]
--- NOTE | 2020-10-14 18:45 | PRG ---
DATE OF SERVICE: 10/14/2020 SUBJECTIVE: Mr. Jaeger is doing well. No current complaints. His CT scan did suggest PE. He was placed on heparin in addition to Coumadin. He also had mediastinal and hilar lymphadenopathy which is not felt to be a new problem. OBJECTIVE: VITAL SIGNS: Blood pressure 141/65, pulse 103, temperature 98.4. LUNGS: Clear to auscultation. HEART: Regular rate and rhythm. ABDOMEN: Soft, nontender, nondistended. EXTREMITIES: No edema. IMPRESSION: 1. Tachycardia. 2. PE. 3. Hilar lymphadenopathy. RECOMMENDATIONS: 1. Agree with Coumadin therapy, achieving an INR of 2-3. This is the second episode and would likely recommend a lifelong Coumadin treatment. 2. Pulmonary consultation pending in addition to a CV Surgery consult pending. 3. Otherwise, the patient appears to be stable with heart rate in the 80s to 90s. We will sign off. Job ID: [id number]
[2020-10-14] MEDS: Atorvastatin Calcium 40 MG TAB PO SCH (21:40)
[2020-10-14] MEDS: Insulin Glargine 30 UNITS in Pre-Filled Syringe 1 EACH SC SCH (21:41)
[2020-10-14] MEDS: Enoxaparin Sodium 120 MG/0.8 ML SYRINGE SC SCH (21:41)
[2020-10-14] MEDS: Acetaminophen 325 MG TAB PO PRN (22:06)
[2020-10-15] MEDS: HumaLOG 300 UNITS/3 ML VIAL SC PRN (05:56)
[2020-10-15] MEDS: Sodium Chloride 0.9% 1,000 ML IV SCH (05:57)
[2020-10-15 08:37] LABS: Prothrombin Time 12.9 sec (12.0-14.7)
[2020-10-15] MEDS: Aspirin 81 mg Enteric Coated Tablet PO SCH (09:02)
[2020-10-15] MEDS: Insulin Glargine 30 UNITS in Pre-Filled Syringe 1 EACH SC SCH ×2 (09:02→21:04)
[2020-10-15] MEDS: metFORMIN 500 MG TAB PO SCH ×2 (09:02→16:44)
[2020-10-15] MEDS: Folic Acid 1 MG TAB PO SCH (09:03)
[2020-10-15] MEDS: Fenofibrate 48 MG TAB PO SCH (09:03)
[2020-10-15] MEDS: hydrALAZINE 25 MG TAB PO SCH ×3 (09:04→20:15)
[2020-10-15] MEDS: Magnesium Oxide 400 MG TAB PO SCH (09:05)
[2020-10-15] MEDS: NIFEdipine XL 60 MG TAB PO SCH (09:06)
[2020-10-15] MEDS: Thiamine 100 MG TAB PO SCH (09:06)
[2020-10-15] MEDS: Multivitamin W/ Minerals 1 TAB PO SCH (09:06)
[2020-10-15] MEDS: Pioglitazone HCl 15 MG TAB PO SCH (09:06)
[2020-10-15] MEDS: glyBURIDE 2.5 MG TAB PO SCH ×2 (09:07→16:44)
[2020-10-15] MEDS: Lisinopril 20 MG TAB PO SCH (09:07)
[2020-10-15] MEDS: Enoxaparin Sodium 120 MG/0.8 ML SYRINGE SC SCH ×2 (09:07→20:15)
--- NOTE | 2020-10-15 14:32 | PDOC.HOSPP ---
- Subjective Encounter Date: 10/15/20 Encounter Time: 11:00 Subjective: no sob or palp, feels good is amb in room wo assistance - Objective Vital Signs & Weight: Vital Signs (12 hours) Temp Pulse Resp BP BP BP Pulse Ox 10/15/20 12:53 171/91 H 10/15/20 12:00 171/91 H 10/15/20 11:24 98.3 F 95 20 181/82 H 93 L 10/15/20 10:24 177/92 H 10/15/20 09:04 81 177/92 H 10/15/20 07:18 98.3 F 80 16 158/82 H 98 10/15/20 04:00 167/87 H 10/15/20 03:00 98.5 F 85 18 167/87 H 97 Weight Weight 296 lb I&O: 10/14/20 10/15/20 10/16/20 06:59 06:59 06:59 Intake Total 1964 2404 Balance 1964 2404 Result Diagrams: 10/14/20 12:42 10/14/20 10:55 Additional Labs: Accuchecks 10/15/20 10/15/20 10/15/20 14:16 12:49 10:32 POC Glucose 132 H 117 H 176 H 10/15/20 10/14/20 10/14/20 05:43 21:11 16:26 POC Glucose 195 H 353 H 484 H Hospitalist ROS - Medication Medications: Active Medications Generic Name Dose Route Start Last Admin Trade Name Freq PRN Reason Stop Dose Admin Acetaminophen 650 mg 10/12/20 02:27 10/14/20 22:06 Acetaminophen 325 Mg Tab PO 650 mg Q4H PRN Administration Headache/Fever or Pain Aspirin 81 mg 10/12/20 09:00 10/15/20 09:02 Aspirin 81 Mg Enteric Coated Tablet PO 81 mg DAILY NUBIA Administration Atorvastatin Calcium 40 mg 10/12/20 21:00 10/14/20 21:40 Atorvastatin Calcium 40 Mg Tab PO 40 mg HS NUBIA Administration Enoxaparin Sodium 120 mg 10/14/20 21:00 10/15/20 09:07 Enoxaparin Sodium 120 Mg/0.8 Ml Syringe SC 120 mg 0900,2100 NUBIA Administration Fenofibrate 48 mg 10/12/20 09:00 10/15/20 09:03 Fenofibrate 48 Mg Tab PO 48 mg DAILY NUBIA Administration Folic Acid 1 mg 10/14/20 09:00 10/15/20 09:03 Folic Acid 1 Mg Tab PO 1 mg DAILY NUBIA Administration Glyburide 2.5 mg 10/13/20 17:00 10/15/20 09:07 Glyburide 2.5 Mg Tab PO 2.5 mg BID-WM NUBIA Administration Hydralazine HCl 25 mg 10/12/20 15:00 10/15/20 09:04 Hydralazine 25 Mg Tab PO 25 mg TID NUBIA Administration Insulin Glargine 30 units/ 0.3 mls @ 0 mls/hr 10/14/20 21:00 10/15/20 09:02 Miscellaneous Medication SC 0.3 mls BID NUBIA Administration Sodium Chloride 1,000 mls @ 70 mls/hr 10/14/20 13:30 10/15/20 05:57 Normal Saline 0.9% IV 10/15/20 18:04 1,000 mls .[id number] NUBIA Administration Insulin Human Lispro 0 units 10/11/20 21:53 10/15/20 05:56 Humalog 300 Units/3 Ml Vial SC 2 units .MILD SLIDING SCALE PRN Administration Mild Correctional Scale Insulin Human Lispro 0 units 10/12/20 20:38 10/14/20 21:41 Humalog 300 Units/3 Ml Vial SC 5 unit .BEDTIME SLIDING SC PRN Administration Bedtime Correctional Scale Iron/Minerals/Multivitamins 1 tab 10/14/20 09:00 10/15/20 09:06 Multivitamin W/ Minerals 1 Tab PO 1 tab DAILY NUBIA Administration Lisinopril 20 mg 10/13/20 09:00 10/15/20 09:07 Lisinopril 20 Mg Tab PO 20 mg DAILY NUBIA Administration Magnesium Oxide 400 mg 10/14/20 09:00 10/15/20 09:05 Magnesium Oxide 400 Mg Tab PO 400 mg DAILY NUBIA Administration Metformin HCl 500 mg 10/13/20 17:00 10/15/20 09:02 Metformin 500 Mg Tab PO 500 mg BID-WM NUBIA Administration Metoprolol Succinate 100 mg 10/14/20 09:00 10/15/20 09:06 Metoprolol Succinate Xl 100 Mg Tab PO 100 mg DAILY NUBIA Administration Nifedipine 60 mg 10/12/20 09:00 10/15/20 09:06 Nifedipine Xl 60 Mg Tab PO 60 mg DAILY NUBIA Administration Pantoprazole Sodium 40 mg 10/12/20 09:00 10/15/20 09:06 Pantoprazole 40 Mg Tab PO 40 mg DAILY NUBIA Administration Pioglitazone HCl 30 mg 10/14/20 09:00 10/15/20 09:06 Pioglitazone Hcl 15 Mg Tab PO 30 mg DAILY NUBIA Administration Sodium Chloride 10 ml 10/12/20 09:00 10/15/20 09:08 Flush - Normal Saline 10 Ml Syringe IVF 10 ml Q12HR NUBIA Administration Thiamine HCl 100 mg 10/14/20 09:00 10/15/20 09:06 Thiamine 100 Mg Tab PO 100 mg DAILY NUBIA Administration Trazodone HCl 50 mg 10/12/20 02:51 10/13/20 03:01 Trazodone Hcl 50 Mg Tab PO 50 mg HS PRN Administration Insomnia - Exam General Appearance: awake alert Eye: PERRL, anicteric sclera ENT: no oropharyngeal lesions, moist mucosa Neck: supple, no JVD Heart: RRR, no murmur Respiratory: no wheezes, no rales, no ronchi Gastrointestinal: soft, non-tender, non-distended, normal bowel sounds Extremities: no cyanosis, no edema Neurological: cranial nerve grossly intact, no focal deficits Psychiatric: normal affect, A&O x 3 Hosp A/P (1) ERICA (acute kidney injury) Code(s): N17.9 - ACUTE KIDNEY FAILURE, UNSPECIFIED Status: Resolved (2) TIA (transient ischemic attack) Code(s): G45.9 - TRANSIENT CEREBRAL ISCHEMIC ATTACK, UNSPECIFIED Status: Resolved (3) Obesity Code(s): E66.9 - OBESITY, UNSPECIFIED Status: Chronic Qualifiers: Obesity classification: adult class 3 (BMI >= 40) Body mass index: BMI 40.0-44.9 (4) Alcohol abuse Code(s): F10.10 - ALCOHOL ABUSE, UNCOMPLICATED Status: Chronic (5) DM type 2 (diabetes mellitus, type 2) Status: Chronic Qualifiers: Diabetes mellitus alf insulin use: without terminal gauger use Diabetes mellitus complication status: with kidney complications Diabetes mellitus complication detail: with chronic kidney disease (6) Hypertension, uncontrolled Code(s): I10 - ESSENTIAL (PRIMARY) HYPERTENSION Status: Chronic (7) Dyslipidemia Code(s): E78.5 - HYPERLIPIDEMIA, UNSPECIFIED Status: Chronic (8) Hypertriglyceridemia Code(s): E78.1 - PURE HYPERGLYCERIDEMIA Status: Chronic (9) Pulmonary embolus Code(s): I26.99 - OTHER PULMONARY EMBOLISM WITHOUT ACUTE COR PULMONALE Status: Acute Qualifiers: Pulmonary embolism type: unspecified Chronicity: acute Acute cor pulmonale presence: without acute cor pulmonale Qualified Code(s): I26.99 - Other pulmonary embolism without acute cor pulmonale (10) Mediastinal lymphadenopathy Code(s): R59.0 - LOCALIZED ENLARGED LYMPH NODES Status: Chronic - Plan CTA shows PE, had prior h/o PE, on lovenox and coumadin to start this evening mediastinal lymphadenopathy, he has had them from 2006 when biopsy was -ve and he saw then with no further f/u. has compared his CTA from 2014 to current one with no worsening of lymph nodes, no further w/u to be done now. stroke w/u is -ve for ac cva, TIA has resolved h/o heavy alc abuse d/w patient and and have given full updates on 10/12, 10/13, 10/14, 10/15. will let us know if he can go on drug plan for NOAC, if so will switch to the one they can afford. on tricor for severe hypertriglyceridemia likely sec to heavy alc use in addition to diet, previously was in the 500's now around 2000 continue asp, lipitor, glyburide, metformin, pioglitazone, lantus, hydralazine, lisinopril. Increase toprol xl to 100mg daily from today renal function is almost back to baseline hemo/neurostable to ambulate as tolerated dc plan depends on if he can afford NOAC, if so then in am, otherwise has to wait for inr to become therapeutic. May tx to med floor
[2020-10-15] MEDS ORDERED: Warfarin Sodium 5 MG TAB PO SCH (17:00)
[2020-10-15] MEDS ORDERED: Loratadine 10 MG TAB PO PRN (19:36)
[2020-10-15] MEDS: Atorvastatin Calcium 40 MG TAB PO SCH (20:15)
[2020-10-16] MEDS: HumaLOG 300 UNITS/3 ML VIAL SC PRN (05:41)
[2020-10-16 05:54] LABS: Prothrombin Time 13.1 sec (12.0-14.7)
[2020-10-16] MEDS: Enoxaparin Sodium 120 MG/0.8 ML SYRINGE SC SCH (08:18)
[2020-10-16] MEDS ORDERED: Apixaban 5 MG TAB PO SCH (09:00)
[2020-10-16] MEDS: metFORMIN 500 MG TAB PO SCH (09:24)
[2020-10-16] MEDS: glyBURIDE 2.5 MG TAB PO SCH (09:24)
[2020-10-16] MEDS: Insulin Glargine 30 UNITS in Pre-Filled Syringe 1 EACH SC SCH (09:26)
[2020-10-16] MEDS: NIFEdipine XL 60 MG TAB PO SCH (09:28)
[2020-10-16] MEDS: Multivitamin W/ Minerals 1 TAB PO SCH (09:28)
[2020-10-16] MEDS: Magnesium Oxide 400 MG TAB PO SCH (09:28)
[2020-10-16] MEDS: Thiamine 100 MG TAB PO SCH (09:28)
[2020-10-16] MEDS: Folic Acid 1 MG TAB PO SCH (09:29)
[2020-10-16] MEDS: Lisinopril 20 MG TAB PO SCH (09:29)
[2020-10-16] MEDS: hydrALAZINE 25 MG TAB PO SCH (09:29)
[2020-10-16] MEDS: Fenofibrate 48 MG TAB PO SCH (09:29)
[2020-10-16] MEDS: Pioglitazone HCl 15 MG TAB PO SCH (09:29)
[2020-10-16] MEDS: Aspirin 81 mg Enteric Coated Tablet PO SCH (09:33)
[2020-10-16 11:45] VITALS: TEMP 98.9
[2020-10-16 13:07] VITALS: BP 146/92
--- NOTE | 2020-10-17 07:53 | DIS ---
DATE OF ADMISSION: 10/12/2020 DATE OF DISCHARGE: 10/16/2020 DISPOSITION: Discharged home. PRIMARY CARE PROVIDER: Dr. Durham, [facility]. FINAL DIAGNOSES: Acute pulmonary embolus without acute cor pulmonale; acute renal failure, resolved; hypertension; diabetes mellitus type 2; TIA. DISCHARGE MEDICATIONS: 1. Eliquis 10 mg p.o. daily. 2. Aspirin 81 mg a day. 3. Nifedipine 60 mg a day. 4. Actos 30 mg a day. 5. Lisinopril 40 mg a day. 6. Trazodone 50 mg a day. 7. Allopurinol 300 mg a day. 8. Glyburide/metformin 2.5/500 twice a day. 9. Insulin glargine 45 units subcu daily. ALLERGIES: IODINATED CONTRAST. DIET: Diabetic. PENDING AT TIME OF DISCHARGE: Nothing. CODE STATUS: Full. HOSPITAL COURSE: The patient was admitted to [facility] to the hospitalist service, presented with dysarthria, ataxia, placed in the hospital with diagnosis of stroke versus TIA. His MRI revealed no acute infarct. His brain CT showed no acute abnormality. Carotid Doppler study, no stenosis. He had a CT of his thorax, which revealed a pulmonary thromboembolism with mild clot burden in the right lower lobe pulmonary artery branch. He did have some mediastinal and hilar adenopathy. He was seen in consultation by Dr. Eb Louie, Cardiovascular Surgery, who noted that he had a workup for nodes in the past, considered not to be a risk for lymphoma, probable sarcoidosis. He also had a consultation from Dr. Rasheed Koch, Cardiology for tachycardia. He recommended changing blood pressure medicines. The patient's symptoms resolved rapidly in relation to his ataxia and his dysarthria. At the time of discharge, the patient is doing well. His blood pressure is mildly elevated, O2 sats are unremarkable. He is being discharged with prescription for Eliquis. He is being continued on his blood pressure and diabetes mellitus medicines. He has been asked to see Dr. Durham at [facility] in 1 week for followup. He had no procedures done. The risk of anticoagulation has been discussed with him, but he has had a previous pulmonary embolus approximately 10 years ago and will require lifelong anticoagulation. He understands the risk factors. 35 minutes spent preparing this discharge. Job ID: [id number]
--- NOTE | 2020-10-19 11:10 | EKG ---
Test Reason : Blood Pressure : / mmHG Vent. Rate : 107 BPM Atrial Rate : 107 BPM P-R Int : 160 ms QRS Dur : 072 ms QT Int : 354 ms P-R-T Axes : 042 042 050 degrees QTc Int : 472 ms Sinus tachycardia Nonspecific T wave abnormality Abnormal ECG Confirmed by JOSELINE ODONNELL DO ([id number]), material specialist CLARITA CHARLES ([id number]) on 10/19/2020 11:10:14 AM Referred By: Confirmed By:JOSELINE ODONNELL DO
== END 2020-10-16 12:35 | disposition home or self-care (01) | DRG 682 ==
LOC: ERS 19:01 → INTOOBSV 21:32 → 2SE 21:32 → OBSVTOIN 10-12 14:14
PROVIDERS: ADMIT Student in an Organized Health Care Education/Training Program; ATTEND Internal Medicine
DX: N17.9 Acute kidney failure, unspecified (principal); I26.99 Other pulmonary embolism without acute cor pulmonale; G45.9 Transient cerebral ischemic attack, unspecified; Z68.41 Body mass index [BMI] 40.0-44.9, adult; E11.9 Type 2 diabetes mellitus without complications; I10 Essential (primary) hypertension; Z20.828 Contact with and (suspected) exposure to other viral communicable diseases; F10.10 Alcohol abuse, uncomplicated; E78.5 Hyperlipidemia, unspecified; R00.0 Tachycardia, unspecified; R59.0 Localized enlarged lymph nodes; E86.0 Dehydration; E78.1 Pure hyperglyceridemia; E66.9 Obesity, unspecified; M10.9 Gout, unspecified; Z90.49 Acquired absence of other specified parts of digestive tract; Z87.891 Personal history of nicotine dependence
CPT/HCPCS: 36415; 36416; 70450; 70551; 71045; 71275; 80048; 80053; 80061; 83036; 83735; 84443; 84484; 85025; 85379; 85610; 85730; 87635; 93005; 93306; 93880; 96372; G0378; J1644; J1650; J1815; J7512; Q0163; Q9967; U0003